=== PATIENT | female | born 1990 | race Caucasian/White ===

== ENCOUNTER → 2025-05-26 | Outpatient (CLI) | payer BC, SELFPAY ==
--- NOTE | 2025-05-26 15:00 | XR_ITS ---
Examination: Transvaginal ultrasound of the pelvis, complete Technique: Transvaginal sonographic images pelvis performed using edmondson scale imaging Exam date and time: May 26, 2025, 1509 hours INDICATIONS: Vaginal bleeding pelvic and perineal pain beginning 3 months ago FINDINGS: Uterus 8.6 x 4.4 cm x 5.3 cm Intrauterine device appears in satisfactory position Endometrium 0.34 cm Right ovary 2.6 x 2.0 x 1.9 cm, 11 mm cyst Left ovary 2.7 x 1.1 x 1.6 cm, 8 mm cyst IMPRESSION: Intrauterine device in satisfactory position.
== END | disposition home or self-care (01) ==
PROVIDERS: PCP Physician Assistant; Referring Provider Physician Assistant; Visit Provider Physician Assistant
DX: R10.20 Pelvic and perineal pain unspecified side (principal); Z30.431 Encounter for routine checking of intrauterine contraceptive device
CPT/HCPCS: 76830